=== PATIENT | male | born 1970 | race Caucasian/White ===

== ENCOUNTER 2017-08-23 10:38 | Inpatient (IN) ==
[2017-08-23 10:52] VITALS: BMI 33.0
[2017-08-23] MEDS ORDERED: MORPHINE 2 MG/ML SYRINGE IVP STA (11:12)
[2017-08-23] MEDS ORDERED: ZOFRAN 4 MG/2 ML IVP STA (11:12)
[2017-08-23] MEDS ORDERED: SODIUM CHLORIDE 1,000 ML IV STA ×2 (11:13→13:36)
--- NOTE | 2017-08-23 11:48 | DI ---
EXAM: Chest two view, frontal and lateral views. HISTORY: Cough. COMPARISON: None available. FINDINGS: The heart size is normal. There is no pulmonary vascular congestion. Mild peribronchial thickening noted. Otherwise, the lungs are clear. No pleural effusion or pneumothorax is seen. No acute osseous abnormality identified. IMPRESSION: Mild peribronchial thickening suggesting airways inflammation/infection.
--- NOTE | 2017-08-23 12:07 | CT ---
EXAM: CT abdomen pelvis without contrast HISTORY: Pain COMPARISON: None TECHNIQUE: CT abdomen pelvis performed without intravenous contrast. Coronal and sagittal reformatt ed images obtained. FINDINGS: Lung bases clear. No free air. No acute abnormalities of the bones. Degenerate change i n the spine. Bilateral pars defects L5. No anterolisthesis. Heart normal in size. Evaluation orga n parenchyma limited without contrast. Liver diffusely decreased in attenuation. Gallbladder appear s normal. Pancreas appears normal. Spleen appears normal. Adrenals appear normal. There is a 2 m m nonobstructing left renal calculus. No hydronephrosis. Mild left renal atrophy. No calculi visual ized in normal course of the ureters. Bladder decompressed and poorly evaluated. Prostate normal in size. No lymphadenopathy or ascites. Stomach appears normal. No dilated loops small bowel. Appen neftali appears normal. Colon unremarkable. IMPRESSION: 1. Left nephrolithiasis. No hydronephrosis. 2. Hepatic steatosis. 3. Colonic diverticulosis. 4. Mild left renal atrophy.
[2017-08-23] MEDS ORDERED: ROCEPHIN 1 GM in SODIUM CHLORIDE 50 ML IV STA (13:35)
[2017-08-23] MEDS ORDERED: ROCEPHIN ONE (14:24)
--- NOTE | 2017-08-23 14:44 | ED.PDOC ---
General ED Provider: Dr. XOCHILT PEREZ Chief Complaint: Nausea/Vomiting Stated Complaint: abdominal pain Time Seen by Physician: 11:00 Mode of Arrival: Walk-In Information Source: Patient Exam Limitations: No limitations Primary Care Provider: ANEL URIBE Nursing and Triage Documentation Reviewed and Agree: Yes Reviewed sepsis parameters & appropriate labs ordered?: Yes System Inflammatory Response Syndrome: Not Applicable Sepsis Protocol: For patient's 13 years and over: Temp is 96.8 and below OR 101 and greater Pulse >90 BPM Resp >20/minute Acutely Altered Mental Status Are patient's symptoms suggestive of a new infection, such as: -Pneumonia -Skin, Soft Tissue -Endocarditis -UTI -Bone, Joint Infection -Implantable Device -Acute Abdominal Infection -Wound Infection -Meningitis -Blood Stream Catheter Infection -Unknown GI Complaint Exam - Abdominal Pain Complaint/Exam Onset: Gradual Duration: 1 day Symptoms Are: Still present Timing: Intermittent Initial Severity: Moderate Current Severity: Moderate Location of Pain: Diffuse Character: Reports: Aching Aggravating: Reports: None Alleviating: Reports: None Associated Signs and Symptoms: Reports: Cough, Nausea. Denies: Diaphoresis, Fever, Chest pain, Dizziness, Back pain, Constipation, Blood in stool, Dysuria, Urinary frequency, Decreased urine output, Decreased appetite, Discharge, Vomiting, Diarrhea, Decreased activity Related History: Reports: Similar episode AAA 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: Reports: None Cardiac 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: Reports: None Testicular Torsion 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: Reports: None Surgical Obstruction 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: Reports: None Related Surgical History: Reports: None Differential Diagnoses: Appendicitis, Bowel Obstruction, Constipation, Gastroenteritis, Hepatitis, Pancreatitis, Irritable Bowel Syndrome, Ureteral Stone, UTI Review of Systems - Review Of Systems Constitutional: Reports: Chills, Malaise, Weakness, Loss of appetite Eyes: Reports: No symptoms Ears, Nose, Mouth, Throat: Reports: No symptoms Respiratory: Reports: Cough Cardiac: Reports: No symptoms GI: Reports: Abdominal pain, Nausea, Vomiting : Reports: No symptoms Musculoskeletal: Reports: No symptoms Skin: Reports: No symptoms Neurological: Reports: No symptoms Endocrine: Reports: No symptoms Hematologic/Lymphatic: Reports: No symptoms All Other Systems: Reviewed and Negative Past Medical History - Past Medical History Previously Healthy: Yes Endocrine: Reports: None Cardiovascular: Reports: None Respiratory: Reports: None Hematological: Reports: None Gastrointestinal: Reports: None Genitourinary: Reports: None Neuro/Psych: Reports: None Musculoskeletal: Reports: None Cancer: Reports: None - Surgical History General Surgical History: Reports: None - Family History Family History: Reports: None - Social History Smoking Status: Current some day smoker Hx Substance Use: No Alcohol Screening: Occasionally - Immunizations Tetanus Shot up to Date: Yes Physical Exam - Physical Exam Appearance: Ill-appearing Ill-appearing: Moderate Pain Distress: Moderate Eyes: VINITA, EOMI, Conjunctiva clear ENT: Dry mucosa Respiratory: Airway patent, Breath sounds clear, Breath sounds equal, Respirations nonlabored Cardiovascular: RRR, Pulses normal, No rub, No murmur GI/: Soft, Nontender, No masses, Bowel sounds normal, No Organomegaly Musculoskeletal: Normal strength, ROM intact, No edema, No calf tenderness Skin: Warm, Dry, Normal color Neurological: Sensation intact, Motor intact, Reflexes intact, Cranial nerves intact, Alert, Oriented Psychiatric: Affect appropriate, Mood appropriate Physician Notification - Case Discussed Physician Notified: ed Time of Notification: 14:45 (admitt) Admit To: Inpatient Critical Care Note - Critical Care Note Total Time (mins): 0 Course - Course Hematology/Chemistry: 08/23/17 11:30 08/23/17 11:30 Orders, Labs, Meds: Lab Review 08/23/17 08/23/17 08/23/17 11:30 11:30 11:30 WBC 14.40 H RBC 5.58 Hgb 16.8 Hct 46.8 MCV 83.9 MCH 30.1 MCHC 35.9 H RDW Coeff of Anya 12.9 Plt Count 198 Immature Gran % (Auto) 0.8 Neut % (Auto) 91.4 Lymph % (Auto) 4.0 L Carolina % (Auto) 3.6 Eos % (Auto) 0.1 Baso % (Auto) 0.1 Immature Gran # (Auto) 0.1 Neut # 13.2 H Lymph # 0.6 Carolina # 0.5 Eos # 0.0 Baso # 0.0 Puncture Site O2 Saturation ABG pH ABG pCO2 ABG pO2 ABG HCO3 ABG Total CO2 ABG Base Excess Karson Test FiO2 % Sodium 139 Potassium 4.0 Chloride 105 Carbon Dioxide 23 Anion Gap 15.0 BUN 18 Creatinine 1.33 H Estimated GFR (MDRD) 58.00 BUN/Creatinine Ratio 13.53 Glucose 119 H Lactic Acid 23.5 H Calcium 9.7 Total Bilirubin 0.6 AST 18 ALT 29 Alkaline Phosphatase 70 Total Protein 8.2 Albumin 4.2 Globulin 4.0 Albumin/Globulin Ratio 1.05 Amylase 54 Lipase 19 Urine Color Urine Clarity Urine pH Ur Specific Henderson Urine Protein Urine Glucose (UA) Urine Ketones Urine Blood Urine Nitrite Urine Bilirubin Urine Urobilinogen Ur Leukocyte Esterase Urine Microscopic RBC Urine Microscopic WBC Ur Squamous Epith Cells Urine Mucus Influenza A (Rapid) Influenza B (Rapid) 08/23/17 08/23/17 08/23/17 11:45 11:45 13:32 WBC RBC Hgb Hct MCV MCH MCHC RDW Coeff of Anya Plt Count Immature Gran % (Auto) Neut % (Auto) Lymph % (Auto) Carolina % (Auto) Eos % (Auto) Baso % (Auto) Immature Gran # (Auto) Neut # Lymph # Carolina # Eos # Baso # Puncture Site R radial O2 Saturation 92.0 L ABG pH 7.379 ABG pCO2 36.1 ABG pO2 65.0 L ABG HCO3 21.3 L ABG Total CO2 22 ABG Base Excess -4 L Karson Test + FiO2 % 21.0 Sodium Potassium Chloride Carbon Dioxide Anion Gap BUN Creatinine Estimated GFR (MDRD) BUN/Creatinine Ratio Glucose Lactic Acid Calcium Total Bilirubin AST ALT Alkaline Phosphatase Total Protein Albumin Globulin Albumin/Globulin Ratio Amylase Lipase Urine Color Yellow Urine Clarity Clear Urine pH 5.5 Ur Specific Henderson 1.020 Urine Protein Negative Urine Glucose (UA) Negative Urine Ketones Negative Urine Blood Trace-intact Urine Nitrite Negative Urine Bilirubin Negative Urine Urobilinogen 0.2 Ur Leukocyte Esterase Negative Urine Microscopic RBC 0-2 Urine Microscopic WBC 0-2 Ur Squamous Epith Cells 0-2 Urine Mucus 1+ Influenza A (Rapid) Negative by naat Influenza B (Rapid) Negative by naat Orders Category Date Time Status ADMIT PATIENT INPATIENT .TO [facility] (MONITORED BED) ADMISSION 08/23/17 14: 40 Ordered ABG DRAW REQUEST Stat CARDIO 08/23/17 13:33 Completed EKG-(IP & OP ONLY) DAILY CARDIO 08/24/17 06:00 Ordered EKG-(IP & OP ONLY) DAILY CARDIO 08/25/17 06:00 Ordered EKG-(IP & OP ONLY) DAILY CARDIO 08/26/17 06:00 Ordered ACTIVITY .BR with BRP CARE 08/23/17 14:40 Ordered INTAKE & OUTPUT Q8HR CARE 08/23/17 14:40 Ordered TELEMETRY MONITORING TELE CARE 08/23/17 14:41 Ordered VITAL SIGNS Q8HR CARE 08/23/17 14:40 Ordered REGULAR DIET DIETARY 08/23/17 Dinner Ordered ED IV/MEDIPORT/POWERPORT .ONCE EMERGENCY 08/23/17 11:12 Active ABG Stat LAB 08/23/17 13:32 Completed AMYLASE Stat LAB 08/23/17 11:30 Completed BLOOD CULTURE (ED ONLY) Stat LAB 08/23/17 11:30 Received CBC W/ AUTO DIFF DAILY@0600 LAB 08/24/17 06:00 Ordered CBC W/ AUTO DIFF DAILY@0600 LAB 08/25/17 06:00 Ordered CBC W/ AUTO DIFF Stat LAB 08/23/17 11:30 Completed COMPREHENSIVE METABOLIC PANEL DAILY@0600 LAB 08/24/17 06:00 Ordered COMPREHENSIVE METABOLIC PANEL DAILY@0600 LAB 08/25/17 06:00 Ordered COMPREHENSIVE METABOLIC PANEL Stat LAB 08/23/17 11:30 Completed LACTIC ACID Stat LAB 08/23/17 11:30 Completed LIPASE Stat LAB 08/23/17 11:30 Completed MOLECULAR GROUP A STREP Stat LAB 08/23/17 11:45 Results RAPID FLU A/B Stat LAB 08/23/17 11:45 Completed STREP SCREEN Stat LAB 08/23/17 11:45 Results URINALYSIS C & S IF INDICATED Stat LAB 08/23/17 11:45 Completed 0.9 % Sodium Chloride [Saline Flush] MEDS 08/23/17 11:12 Active 1 syr IVF PRN PRN Ceftriaxone Sodium [Rocephin] MEDS 08/23/17 14:24 Discontinued 1 gm .ROUTE .STK-MED ONE Ceftriaxone Sodium [Rocephin] 1 gm MEDS 08/24/17 09:00 Ordered 0.9 % Sodium Chloride [Sodium Chloride] 50 ml IV DAILY Ceftriaxone Sodium [Rocephin] 1 gm MEDS 08/23/17 13:35 Discontinued 0.9 % Sodium Chloride [Sodium Chloride] 50 ml IV ONCE Morphine Sulfate [Morphine 2 mg/ml Syringe] MEDS 08/23/17 11:12 Discontinued 4 mg IVP ONCE STA Ondansetron HCl/Pf [Zofran 4 mg/2 ml] MEDS 08/23/17 11:12 Discontinued 4 mg IVP ONCE STA Sodium Chloride 0.9% [Sodium Chloride] 1,000 ml MEDS 08/23/17 13:36 Active IV 30 mls/hr Sodium Chloride 0.9% [Sodium Chloride] 1,000 ml MEDS 08/23/17 15:00 Ordered IV 75 mls/hr Sodium Chloride 0.9% [Sodium Chloride] 1,000 ml MEDS 08/23/17 11:13 Discontinued IV BOLUS CHEST, 2 VIEWS PA & LAT Stat RADS 08/23/17 11:[address] ABDOMEN/PELVIS WO CONTRAST Stat RADS 08/23/17 11:11 Completed Medications Generic Name Dose Route Start Last Admin Trade Name Freq PRN Reason Stop Dose Admin Sodium Chloride 1,000 mls @ 30 mls/hr 08/23/17 13:36 Sodium Chloride IV 08/24/17 22:55 .[id number] STA Sodium Chloride 1 syr 08/23/17 11:12 Saline Flush IVF PRN PRN To flush IV Discontinued Medications Generic Name Dose Route Start Last Admin Trade Name Freq PRN Reason Stop Dose Admin Sodium Chloride 1,000 mls @ 1,000 mls/hr 08/23/17 11:13 08/23/17 12:24 Sodium Chloride IV 08/23/17 12:12 1,000 mls/hr BOLUS STA Administration Ceftriaxone Sodium 1 gm/ 50 mls @ 75 mls/hr 08/23/17 13:35 08/23/17 14:11 Sodium Chloride IV 08/23/17 14:14 75 mls/hr ONCE STA Administration Morphine Sulfate 4 mg 08/23/17 11:12 08/23/17 12:24 Morphine 2 Mg/Ml Syringe IVP 08/23/17 11:13 4 mg ONCE STA Administration Ondansetron HCl 4 mg 08/23/17 11:12 08/23/17 12:24 Zofran 4 Mg/2 Ml IVP 08/23/17 11:13 4 mg ONCE STA Administration Vital Signs: Temp Pulse Resp BP Pulse Ox 08/23/17 10:46 98.3 F 104 H 20 124/76 94 L Departure - Departure Time of Disposition: 14:45 Disposition: ADMITTED INPATIENT Discharge Problem: Nausea, Vomiting Abdominal pain Qualifiers: Abdominal location: generalized Qualified Code(s): R10.84 - Generalized abdominal pain Instructions: Abdominal Pain (ED) Condition: Good Pt referred to PMD for follow-up: Yes Additional Instructions: Please call your Family Physician as soon as possible to schedule a follow-up appointment. Allergies/Adverse Reactions: Allergies No Known Allergies Allergy (Verified 04/01/15 20:58) Home Medications: Ambulatory Orders 1 [No Reported Medications] 04/01/15
[2017-08-23] MEDS: SODIUM CHLORIDE 1,000 ML IV SCH ×2 (15:20→19:29)
--- NOTE | 2017-08-23 15:49 | CT ---
EXAM: CTA CHEST (PE PROTOCOL) HISTORY: Shortness of breath TECHNIQUE: CTA chest with intravenous contrast. Multiplanar images were provided with 3-D reconstru ctions. 100 ml Visipaque [id number] FINDINGS: No comparison CT. No pulmonary arterial filling defect. Normal thoracic aorta appear normal heart size with no pericar dial effusion. Bones reveal no consolidated pneumonia or pleural fluid. There may be mild pulmonary vascular conges tion. No pneumothorax. The bones demonstrate no acute abnormality. IMPRESSION: 1. No pulmonary arterial thromboembolism. 2. Questionable mild pulmonary vascular congestion. Lungs are otherwise clear.
[2017-08-23] MEDS ORDERED: DECADRON 4 MG/ML SDV IVP STA (17:21)
[2017-08-23] MEDS ORDERED: ZOFRAN 4 MG/2 ML IVP PRN (17:21)
[2017-08-23] MEDS: DUONEB NEB SCH (21:40)
[2017-08-24] MEDS: DUONEB NEB SCH ×2 (05:09→14:22)
[2017-08-24] MEDS: SODIUM CHLORIDE 1,000 ML IV SCH (08:14)
[2017-08-24] MEDS ORDERED: KEFLEX PO STA (08:40)
[2017-08-24] MEDS ORDERED: ROCEPHIN 1 GM in SODIUM CHLORIDE 50 ML IV SCH (09:00)
[2017-08-24 09:41] VITALS: BP 109/60; TEMP 98.2
--- NOTE | 2017-09-14 10:09 | HP ---
DATE OF SERVICE: 08/23/17 CHIEF COMPLAINT: Nausea, vomiting. HISTORY OF PRESENT ILLNESS: This is a 47 year old male who came to the emergency room with nausea and vomiting duration of two days for every 20 minutes from 11:30 to 2 a.m. He had cramping abdominal pain and vomiting whatever he ate. Vomitus was nonbloody, nonbilious. He also had diarrhea, which was watery and nonbloody and non fowl smelling. Pepto Bismol did not help. He came to the emergency room. The patient also was having some cough, congestion getting a little yellow-green phlegm with some shortness of breath. He was seen by Dr. Rascon in the emergency room. The patient's white count was 14,000. Lactic acid was 23.5, creatinine was negative. Glucose 119. At that time, the patient was admitted to the hospital for the gastroenteritis and upper respiratory infection. CT of the abdomen and pelvis showed hepatitis steatosis, chronic, diverticulosis, mild left renal hypertrophy, nephrolithiasis. Chest x-ray showed airway inflammation and bronchial thickening. REVIEW OF SYSTEMS: CONSTITUTIONAL: Weakness, tiredness. No fever, no chills. HEENT: Normal. ENDOCRINE: No weight gain; no weight loss. CVS: No chest pain. No PND, no orthopnea. Shortness of breath. No PND, no orthopnea. RESPIRATORY: Cough and congestion. No hemoptysis. GI: Nausea and vomiting. No abdominal pain. No melena. Diarrhea : No hematuria. No polyuria. MUSCULOSKELETAL: No joint swelling. PSYCHIATRIC: Not anxious. No depression. No suicidal thoughts. No homicidal thoughts. SKIN: Intact, no open lesions. 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 FAMILY HISTORY: Not significant. HOME MEDICATIONS: None. ALLERGIES: No known drug allergies. PHYSICAL EXAMINATION: V/S: Blood pressure 124/76, respiratory rate 20, heart rate 104, temperature 98.3, saturation 94. HEENT: Atraumatic, normocephalic. No scleral icterus. NECK: Supple. No JVD, no bruit. No lymphadenopathy. No thyromegaly. HEART: S1, S2 normal. No murmur. No cyanosis or clubbing. No ascites. LUNGS: Decreased and clear. No rales or rhonchi. ABDOMEN: Soft, nontender. Hyperactive bowel sounds. No CVA tenderness. No rigidity or guarding. EXTREMITIES: No pedal edema. No cyanosis or clubbing MUSCULOSKELETAL: Normal joints, no swelling. NEUROLOGIC: The patient is SKIN: Intact; no open lesions. LYMPHATIC: No lymph nodes palpable. LABS: Sodium 139, potassium 4.0, chloride 105, bicarb 23, BUN 18, creatinine 1.33. White count 14.40, hemoglobin 16.8, hematocrit 46.8, platelet count 198. ABG with pH 7.379, PCO2 36.1, PO2 65. ASSESSMENT: 1. ACUTE GASTROENTERITIS 2. BRONCHITIS 3. HYPOXEMIA 4. FATTY LIVER PLAN: 1. Admit the patient to the regular floor. 2. Start the patient on the Rocephin. 3. IV fluids. 4. Zofran. 5. Breathing treatments. 6. We will give a Decadron shot. TIME SPENT: MORE THAN [address] [facility]
--- NOTE | 2017-09-14 10:23 | DS ---
DATE OF SERVICE: 08/24/17 FINAL DIAGNOSIS: 1. GASTROENTERITIS 2. UPPER RESPIRATORY INFECTION 3. BRONCHITIS 4. HYPOXEMIA FROM THE UPPER RESPIRATORY INFECTION 5. VISUAL MIGRAINES 6. HISTORY OF TINNITUS 7. ARTHRITIS IN THE LEFT SHOULDER 8. HISTORY OF ANXIETY WITH PTSD PLAN: 1. Discharge the patient home. 2. Keflex 500 mg twice a day for 5 days. 3. Prednisone 10 mg twice a day for 5 days. 4. Ventolin HFA one to two puffs three times a day prn for wheezing and shortness of breath. 5. Diet: Regular. 6. Activity: As much as tolerated. DISEASE SPECIFIC EDUCATION: About the dehydration, upper respiratory infection was discussed with the patient and he verbalized understanding. HOSPITAL COURSE: Jason Flores, who is a 47 year old male, came to the emergency room with complaints of nausea, vomiting, cough and congestion, abdominal pain and not able to keep anything down. Labs showed white count 14, 000, ABG with pH 7.379, PCO2 36.1, PO2 65, D dimer 15, creatinine 1.33, lactic acid 23.5, glucose 119. Chest x-ray was done which was showing the bronchitis with inflammatory changes. For that reason with hypoxemia, CT of the chest was done which showed pulmonary congestion, questionable infection. He was admitted to the hospital and started on IV fluids, Zofran, breathing treatments and Decadron was given. With the treatment, the patient was a lot better by the next day and today the patient is not short of breath, no coughing, no more diarrhea since the night. He was up and about walking. He does not have any complaints. At this time, the patient is being discharged to home with the ordered medication and advised to follow up with the clinic within 5 to 7 days. TIME SPENT: MORE THAN 65 MINUTES [facility]
== END 2017-08-24 15:00 | disposition home or self-care (01) | DRG 392 ==
LOC: ED 10:38 → MEDSURG A 14:58
PROVIDERS: ADMIT Emergency Medicine; ATTEND Emergency Medicine
DX: K52.9 Noninfective gastroenteritis and colitis, unspecified (principal); J06.9 Acute upper respiratory infection, unspecified; J20.9 Acute bronchitis, unspecified; K76.0 Fatty (change of) liver, not elsewhere classified; R06.02 Shortness of breath; K57.90 Diverticulosis of intestine, part unspecified, without perforation or abscess without bleeding; N28.81 Hypertrophy of kidney; N20.0 Calculus of kidney; R09.02 Hypoxemia; G43.819 Other migraine, intractable, without status migrainosus; M19.012 Primary osteoarthritis, left shoulder; F41.9 Anxiety disorder, unspecified; F43.12 Post-traumatic stress disorder, chronic; Z86.69 Personal history of other diseases of the nervous system and sense organs
CPT/HCPCS: 36415; 80053; 81001; 82150; 82550; 82803; 83605; 83690; 84484; 85025; 85379; 87040; 87502; 87651; 87880; 93005; 93010; 94640; 96360; 96361; 96367; 96375; 99284

== ENCOUNTER 2018-04-02 11:59 | Emergency (ER) | payer OTHER ==
[2018-04-02 12:04] VITALS: BP 128/82; TEMP 97.6; BMI 34.4
[2018-04-02] MEDS ORDERED: FLUORETS OP STA (12:16)
[2018-04-02] MEDS ORDERED: EYE-STREAM OP STA (12:20)
[2018-04-02] MEDS ORDERED: TETRACAINE 0.5% OPTH SOL OP STA (12:20)
--- NOTE | 2018-04-02 12:20 | ED.PDOC ---
General ED Provider: Dr. ANTHONY ALCARAZ Chief Complaint: Eye Problem Stated Complaint: CC: Severe Rt Eye Pain. HPI: States developed some discomfort in the Rt Eye yesterday evening and took out his contact. 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 Was working in dust Tuesday. States notice mild discomfort Tuesday that became severe yesterday Time Seen by Physician: 12:10 Mode of Arrival: Walk-In Information Source: Patient Exam Limitations: No limitations Primary Care Provider: ANEL MD Nursing and Triage Documentation Reviewed and Agree: Yes Does patient meet sepsis criteria?: No System Inflammatory Response Syndrome: Not Applicable Sepsis Protocol: For patient's 13 years and over: Temp is 96.8 and below OR 101 and greater Pulse >90 BPM Resp >20/minute Acutely Altered Mental Status Are patient's symptoms suggestive of a new infection, such as: -Pneumonia -Skin, Soft Tissue -Endocarditis -UTI -Bone, Joint Infection -Implantable Device -Acute Abdominal Infection -Wound Infection -Meningitis -Blood Stream Catheter Infection -Unknown EENT Complaint Exam - Eye Complaint/Exam Onset/Duration: 2 days Symptoms Are: Still present Timing: Constant Initial Severity: Mild Current Severity: Severe Location: Left Character: Reports: Sharp, Throbbing, Foreign body sensation Aggravating: Reports: Contact lens Alleviating: Reports: Eye drops (tetracaine) Associated Signs and Symptoms: Reports: Clear drainage Related History: Reports: Similar episode, Foreign body Penetrating Injury 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: Grinding Globe Rupture 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: None Acute Glaucoma 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: None Optic Artery Occlusion 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: None Visual Acuity Right Eye: 20/40 Visual Acuity Left Eye: 20/20 Visual Field: Normal Extraocular Movement: Normal Orbit Findings: Normal Globe Findings: Intact Lid Findings: Normal Conjunctival Findings: Red Corneal Findings: Clear Fluorescein Uptake: Yes (Minimal circular uptake-1.5 mm 1PM position ) Fundi: Normal Differential Diagnoses: Conjunctivitis, Corneal Abrasion, Foreign Body, Keratitis Review of Systems - Review Of Systems Constitutional: Reports: No symptoms Eyes: Reports: No symptoms, Previous injury, Contact lenses Ears, Nose, Mouth, Throat: Reports: No symptoms Respiratory: Reports: No symptoms Cardiac: Reports: No symptoms GI: Reports: No symptoms : Reports: No symptoms Musculoskeletal: Reports: No symptoms Skin: Reports: No symptoms Neurological: Reports: No symptoms Endocrine: Reports: No symptoms Hematologic/Lymphatic: Reports: No symptoms All Other Systems: Reviewed and Negative Past Medical History - Past Medical History Previously Healthy: Yes Endocrine: Reports: None Cardiovascular: Reports: None Respiratory: Reports: None Hematological: Reports: None Gastrointestinal: Reports: None Genitourinary: Reports: None Neuro/Psych: Reports: None Musculoskeletal: Reports: None Cancer: Reports: None Other Pertinent Past Medical History: Ocular injury several years with metal in Rt Eye necessitating surgery - Surgical History General Surgical History: Reports: None - Family History Family History: Reports: None - Social History Smoking Status: Current some day smoker Hx Substance Use: No Alcohol Screening: Occasionally Physical Exam - Physical Exam Appearance: Well-appearing, No pain distress, Well-nourished Eyes: VINITA, EOMI, Conjunctiva clear ENT: Ears normal, Nose normal, Oropharynx normal Respiratory: Airway patent, Breath sounds clear, Breath sounds equal, Respirations nonlabored Cardiovascular: RRR, Pulses normal, No rub, No murmur GI/: Soft, Nontender, No masses, Bowel sounds normal, No Organomegaly Musculoskeletal: Normal strength, ROM intact, No edema, No calf tenderness Skin: Warm, Dry, Normal color Neurological: Sensation intact, Motor intact, Reflexes intact, Cranial nerves intact, Alert, Oriented Psychiatric: Affect appropriate, Mood appropriate Procedures - Eye Procedure Location of Foreign Body: Rt Eye Tetracaine Drops Administered: Yes Depth: Superficial Foreign Body Completely Removed: No Eye Irrigated: Yes Critical Care Note - Critical Care Note Total Time (mins): 0 Course - Course Vital Signs: Temp Pulse Resp BP Pulse Ox 04/02/18 12:01 97.6 F 66 20 128/82 96 Departure - Departure Time of Disposition: 13:05 Disposition: HOME SELF-CARE Discharge Problem: Conjunctivitis, Corneal foreign body Discharge Problem: (Ruled Out): Intraocular foreign body Instructions: Conjunctivitis (ED) Condition: Good Pt referred to PMD for follow-up: Yes (see kilnman tomorrow) IPMP verified?: No Additional Instructions: Use eye ointment and patch as directed See Technology Risk Intern tomorrow Prescriptions: Neomy Sulf/Bacitra/Polymyxin B [Andrea-Polycin Opth Oint] 1 applic OP Q4HR 4 Days # 1 tu Neomycin Sulf/Bacitracin/Poly [Rdcaia-Jahno-Hprojqo Eye Oint] 3.5 gm OP TID 4 Days #1 Allergies/Adverse Reactions: Allergies No Known Allergies Allergy (Verified 04/02/18 12:03) Home Medications: Ambulatory Orders Neomy Sulf/Bacitra/Polymyxin B [Andrea-Polycin Opth Oint] 1 applic OP Q4HR 4 Days # 1 04/02/18 Neomycin Sulf/Bacitracin/Poly [Hjvkld-Whcbl-Smffjxy Eye Oint] 3.5 gm OP TID 4 Days #1 04/02/18 Disposition Discussed With: Patient
[2018-04-02] MEDS ORDERED: NEO-POLYCIN OPTH OINT OP SCH (13:30)
== END 2018-04-02 13:46 | disposition home or self-care (01) ==
LOC: ED 11:59
DX: T15.01XA Foreign body in cornea, right eye, initial encounter (principal); H10.9 Unspecified conjunctivitis; F17.210 Nicotine dependence, cigarettes, uncomplicated
CPT/HCPCS: 99283